=== PATIENT | male | born 1975 | race Two or more races ===

== ENCOUNTER 2018-12-07 14:42 | Emergency (ER) | payer OTHER ==
[~2018-12-07] VITALS: Ht 177.8 cm; Wt 113.4 kg
== END 2018-12-07 19:21 | disposition home or self-care (01) ==
LOC: ER 14:42
DX: N20.2 Calculus of kidney with calculus of ureter (principal)

== ENCOUNTER 2019-03-20 00:56 | Emergency (ER) | payer OTHER ==
[~2019-03-20] VITALS: Ht 177.8 cm; Wt 115.7 kg
== END 2019-03-20 03:41 | disposition home or self-care (01) ==
LOC: ER 00:56
DX: S60.222A Contusion of left hand, initial encounter (principal); W18.39XA Other fall on same level, initial encounter; Y93.89 Activity, other specified; Y92.488 Other paved roadways as the place of occurrence of the external cause; Y99.8 Other external cause status

== ENCOUNTER 2019-04-01 19:11 | Emergency (ER) | payer OTHER ==
[~2019-04-01] VITALS: Ht 177.8 cm; Wt 117.9 kg
[2019-04-01] MEDS ORDERED: VOLTAREN100 GM (19:52)
[2019-04-01] MEDS ORDERED: PNEU16DI2 (19:52)
== END 2019-04-02 00:36 | disposition home or self-care (01) ==
LOC: ER 19:11
DX: R07.89 Other chest pain (principal); G89.11 Acute pain due to trauma

== ENCOUNTER 2019-10-06 08:34 | Emergency (ER) | payer OTHER ==
[~2019-10-06] VITALS: Ht 177.8 cm; Wt 117.9 kg
[~2019-10-06 08:34] MED LIST: PNEU16DI2; VOLTAREN100 GM
== END 2019-10-06 12:38 | disposition home or self-care (01) ==
LOC: ER 08:34
DX: R13.19 Other dysphagia (principal); R07.0 Pain in throat; T18.128A Food in esophagus causing other injury, initial encounter; X58.XXXA Exposure to other specified factors, initial encounter; Y93.89 Activity, other specified; Y92.89 Other specified places as the place of occurrence of the external cause; Y99.8 Other external cause status

== ENCOUNTER 2023-06-11 15:43 | Emergency (ER) | payer OTHER ==
[~2023-06-11] VITALS: Ht 154.9 cm; Wt 122.5 kg
[2023-06-11] MEDS ORDERED: NORFLEX100MG PO (21:12)
[2023-06-11] MEDS ORDERED: DICLOFENAC SODI75 MG PO (21:12)
== END 2023-06-11 21:51 | disposition home or self-care (01) ==
LOC: ER 15:43
DX: M94.0 Chondrocostal junction syndrome [Tietze] (principal); I10 Essential (primary) hypertension

== ENCOUNTER 2025-04-22 14:46 | Emergency (ER) | payer OTHER ==
[~2025-04-22] VITALS: Ht 177.8 cm; Wt 122.5 kg
[~2025-04-22 14:46] MED LIST changes: +DICLOFENAC SODI75 MG PO; +NORFLEX100MG PO
[2025-04-22] MEDS ORDERED: COZAAR50 MG (16:27)
[2025-04-22] MEDS ORDERED: NORFLEX100MG PO (21:37)
[2025-04-22] MEDS ORDERED: DICLOFENAC SODI75 MG PO (21:37)
== END 2025-04-22 21:44 | disposition home or self-care (01) ==
LOC: ER 14:46
DX: S00.93XA Contusion of unspecified part of head, initial encounter (principal); X58.XXXA Exposure to other specified factors, initial encounter; Y93.89 Activity, other specified; Y92.89 Other specified places as the place of occurrence of the external cause; Y99.9 Unspecified external cause status; I10 Essential (primary) hypertension